=== PATIENT | male | born 1985 | race Caucasian/White ===

== ENCOUNTER 2021-01-02 12:29 | Emergency (ER) | payer MEDICAID ==
[~2021-01-02] VITALS: Ht 172.7 cm; Wt 74.8 kg
[2021-01-02 12:31] VITALS: BP 130/93
--- NOTE | 2021-01-02 12:36 | NUR ---
35 y/o male bib [place] for prebook clearance. Pt presents with small abraision to left eyebrow. Denies pain, bleeding controlled.
--- NOTE | 2021-01-02 12:37 | NUR ---
Dr Hightower examning patient
[2021-01-02 12:49] VITALS: BP 130/93
--- NOTE | 2021-01-02 12:50 | NUR ---
PATIENT [facility] POL[employer] DEPT. PATIENT EXAMINED BY DR. Hightower. PATIENT MEDICALLY CLEARED AND RELEASED IN CUSTODY IN STABLE CONDITION. ORIGINAL PRE-BOOK FORM GIVEN TO OFFICER Joseph.
== END 2021-01-02 12:50 ==
LOC: MED 12:29
DX: S01.112A Laceration without foreign body of left eyelid and periocular area, initial encounter (principal); R45.1 Restlessness and agitation; X58.XXXA Exposure to other specified factors, initial encounter; Y93.89 Activity, other specified; Y92.89 Other specified places as the place of occurrence of the external cause; Y99.8 Other external cause status
CPT/HCPCS: 99283